=== PATIENT | male | born 1955 | race Caucasian/White ===

== ENCOUNTER 2016-05-14 11:24 | Outpatient (CLI) | payer BC ==
[~2016-05-14] VITALS: Ht 182.9 cm; Wt 106.8 kg
--- NOTE | ~2016-05-14 | HEMODYNAMI ---
PATIENT:ANASTACIO ROE MEDICAL RECORD: [id number] : 51 LOCATION:[facility] ADMISSION DATE: 05/14/16 Generatedon:05/14/201613:27 Patient name: ANASTACIO ROE Patient #: [id number] SSN: D OB: 1955 Date of study: 05/14/2016 Page: Of Hemodynamic Procedure Report Patient Data Patient Demographics Procedure consent was obtained First Name: ANASTACIO Gender: Male Last Name: BHUPINDER : 1955 Middle Initial: AMY Age: 61 year(s) Patient #: [id number] Race: Unknown Additional ID: [id number] Contact details Address: [address] [place] [address] State: [place] City: [place] Zip code: [address] Past Medical History Allergies Allergen Reaction Date Comments Reported Other allergy 05/14/2016 TYREE Black Admission Admission Data Admission Date: 05/14/2016 Admission Time: 11:24 Arrival Date: 05/14/2016 Arrival Time: 0:00 Admit Source: Other Height (in.): 72 BSA: 2.28 (m2) Height (cm.): 182.88 BMI: 31.74 (kg/m2) Weight (lbs.): 234 Weight (kg.): 106.14 Lab Results Lab Result Date: 05/14/2016 Lab Result Time: 0:00 Biochemistry Name Units Result Min Max BUN mg/dl 16 --(---*)-- 7 18 Creatinine mg/dl 0.6 --(*---)-- 0.6 1.3 CBC Name Units Result Min Max Hemoglobin g/dl 17.8 --(----)*- 13.5 17.5 Procedure Procedure Types Cath Procedure Diagnostic Procedure Cardioversion Procedure Description Procedure Date Procedure Date: 05/14/2016 Procedure Start Time: 13:15 Procedure End Time: 13:21 Procedure Staff Name Function Tr Jesus MD Performing Physician Jeanette Orona RT Scrub Megan Phipps RN Nurse Patricia Shane RT Monitor America Dhillon ADELFO Additional personnel Procedure Data Procedure Complications No complications Procedure Medications Medication Administration Route Dosage Oxygen NC 2 l/min Refer to Anesthesia Notes for Sedation Medications Hemodynamics Rest BSA: 2.28 (m2) HGB: 17.8 (g/dl) O2 Consumption: Estimated: 310.08 (ml/min) O2 Co nsumption indexed: Estimated:136 (ml/min/m) Pre Cath Intra NCS Post Cath Vital Signs Time Heart Resp SPO2 etCO2 [id number] Respiration NIBP (mmHg) Rhythm Obey n Sedation Rate (ipm) (%) (mmHg) (mmHg) (CO2) (ipm) Status Leve l (bpm) 13:04:37 105 18 97 34.1 4.4 17 140/80(117) A-Fib 0 ( 11) 10(A) , No pain 13:09:03 98 17 98 23.7 2.9 10 153/97(132) A-Fib 0 ( 11) 10(A) , No pain 13:13:34 87 16 96 28.9 4.4 16 145/115(123) A-Fib 0 ( 11) 10(A) , No pain 13:18:02 117 15 98 0 0 114/87(112) NSR 0 ( 11) 8(A) , No pain 13:22:20 79 14 97 0 0 124/83(98) NSR 0 ( 11) 9(A) , No pain 13:25:10 82 17 98 32.6 0 13 123/86(101) NSR 0 ( 11) 10(A) , No pain Medications Time Medication Route Dose Verified Delivered Reason Notes Effectiven ess by by 13:02:42 Oxygen NC 2 Tr Guzman used for l/min St. Anastacio Phipps RN procedure MD 13:02:47 Refer to Tr Guzman Anesthesia St. Anastacio Phipps RN Notes for Sedation Medications Procedure Log Time Note 12:48:09 Admit Source: Other 12:48:28 Patient Height : 72 cm 12:48:35 Patient Weight : 234 kg 12:48:36 Arrival Date: 05/14/2016 12:00:00 AM 12:48:47 Diagnostic Cath Status : Elective 12:50:26 Megan Phipps RN sent for patient. Start room use. 12:50:28 Time tracking: Regular hours 12:50:34 Plan of Care:Hemodynamics will remain stable., Cardiac rhythm will remain stable., Comfort level will be maintained., Respiratory function will remain adequate., Patient/ family verbilizes understanding of procedure., Procedure tolerated without complication., Recovers from procedure without complications.. 12:51:33 Patient received from Pre/Post Procedure Room to CCL 1 Alert and oriented. Tansferred to table in Supine position. 12:51:52 H&P Date Dictated: 05/07/2016 Within 30 days and on chart., H&P Addendum completed by physician on day of procedure. (MUST COMPLETE FOR ALL OUTPATIENTS). 12:54:10 Warm blankets applied, and fernando hugger turned on for patient comfort. 12:54:12 Correct patient and procedure confirmed by team. 12:54:14 Signed procedure consent form obtained from patient. 12:54:16 ECG and BP/O2 sat monitors applied to patient. 12:54:38 Pre-procedure instructions explained to patient. 12:54:40 Family in waiting room. 12:54:42 Patient NPO since Midnight. 12:55:12 Patient allergic to Other allergyCodeine, PCN 12:57:39 Is the patient allergic to Iodine/contrast media? No. 12:57:57 Is patient on blood thinner?Yes 12:58:03 ACC The patient was administered the following blood thiners within the last 24 hours: Xarelto 12:58:09 Snore? Yes 12:58:14 Sleep apnea? No 12:58:29 Patient diabetic? Yes. 12:58:51 Dentures? No ? 12:59:06 IV patent on arrival in left forearm with 0.9% NaCl at [facility]. 13:02:42 Oxygen 2 l/min NC was administered by Megan Phipps RN; used for procedure; 13:02:47 Refer to Anesthesia Notes for Sedation Medications was administered by Megan Phipps RN; ; 13:03:57 Lab results completed and on chart. 13:04:23 Lab Result : BUN 16 mg/dl 13:04:23 Lab Result : Creatinine 0.6 mg/dl 13:04:23 Lab Result : Hemoglobin 17.8 g/dl 13:04:34 Alarms reviewed by Elena Paul 13:04:36 Physician paged 13:04:37 Physician arrived 13:09:59 --------ALL STOP TIME OUT------ 13:10:01 Final Timeout: patient, procedure, and site verified with staff and physician. All members of the team are in agreement. 13:10:10 Sedation plan: TIVA Propofol 13:10:21 Quick combo pads placed on patients chest and back. 13:10:30 Quick Combo opened to sterile field. 13:15:26 Procedure started. 13:15:26 Full Disclosure recording started 13:17:19 America Dhillon present and monitoring patient for TIVA. 13:19:09 Defibrillator synced and charged to 200 Joules. 13:19:19 Shock delivered. 13:19:26 Patient cardioverted to sinus rhythm . 13:19:47 Procedure ended.(Physican Out) 13:20:17 Post procedure rhythm: sinus rhythm 13:20:21 Post procedure instruction explained to patient.Patient verbalizes understanding. 13:20:29 Procedure and supply charges have been captured, reviewed, submitted and are correct. 13:20:48 Procedure Complication : No complications 13:21:05 See physician's report for complete and final results. 13:21:07 Report given to Pre/Post Procedure Room. 13:21:12 Patient transfered to Pre/Post Procedure Room with Stretcher. 13:21:16 Procedure ended. 13:21:16 Full Disclosure recording stopped 13:21:23 End room use (Document Last) 13:23:46 Vital chart was stopped Device Usage Item Manufacture Quantity Catalog Hospital Part Current Minimal Lot# / Name Number Charge Number Stock Sonali Koenig ga# Code [employer] 1 [id number] Combo Signature Audit [place] Stage Time Signature Unsigned Intra-Procedure 05/14/2016 Patricia Shane 1:27:02 PM RT(R) Signatures Monitor : Patricia Shane Signature : RT Date : Time : [facility] [address] [place], [place] [id number]
[2016-05-14] MEDS ORDERED: BETAPACE 80 MG80 MG PO (11:49)
[2016-05-14] MEDS ORDERED: NORVASC10 MG PO (11:50)
[2016-05-14] MEDS ORDERED: GLUCOTROL 5 MG T5 MG PO (11:50)
[2016-05-14] MEDS ORDERED: LIPITOR20 MG PO (11:51)
[2016-05-14] MEDS ORDERED: XARELTO20 MG PO (11:51)
[2016-05-14 11:52] VITALS: BP 132/100; Ht 182.9 cm; Wt 106.8 kg
[2016-05-14 12:05] LABS: BASOPHILS 0.2 % (0.0-2.0); EOSINOPHILS 0.9 % (0-7); HEMATOCRIT 51.2 % (42.0-54.0); HEMOGLOBIN 17.8 g/dL (13.5-17.5); IMMATURE GRANULOCYTES 0.3 % (0-5); LYMPHOCYTES 21.7 % (15-50); MCH 33.6 pg (26.0-34.0); MCHC 34.8 g/dL (31.0-37.0); MCV 96.8 fL (80.0-100.0); MEAN PLATELET VOLUME 9.9 fL (7.4-10.4); MONOCYTES 12.5 % (2-11); NEUTROPHILS 64.4 % (40-80); PLATELET COUNT 144 10x3/uL (130-400); RBC 5.29 10x6/uL (4.20-6.10); RDW 12.4 % (11.5-14.5); WBC 9.7 10x3/uL (4.8-10.8)
[2016-05-14 12:20] LABS: CALC OSMOLALITY 280 mosm/kg (275-300); CALCIUM 9.3 mg/dL (8.5-10.1); CARBON DIOXIDE 27.2 mmol/L (21.0-32.0); CHLORIDE - SERUM 103 mmol/L (98-107); CREATININE - SERUM 0.6 mg/dL (0.6-1.3); GLUCOSE 124 mg/dL (74-106); SODIUM 140 mmol/L (136-145); UREA NITROGEN 16 mg/dL (7-18); eGFR NON AFRICAN AMERICAN > 90 mL/min (90-120)
[2016-05-14 12:23] LABS: INR 1.47 (0.85-1.17); PROTIME 17.8 SECONDS (11.6-15.0)
--- NOTE | 2016-05-14 14:55 | NUR ---
1345-NSR, SANDWICH TRAY GIVEN
--- NOTE | 2016-05-14 15:01 | NUR ---
1415-NO EULOGIO WORTHY
--- NOTE | 2016-05-15 08:42 | OP ---
PATIENT NAME: ANASTACIO ROE MEDICAL RECORD: [id number] :51 LOCATION:[facility] ADMISSION DATE: SURGEON: MARY CAVAZOS MD DATE OF OPERATION: 05/14/2016 PROCEDURE: General sedation via anesthesia with TIVA. DESCRIPTION OF PROCEDURE: Single shock successful in restoring atrial fibrillation at 200 joules single synchronized shock successful in restoring atrial fibrillation to normal sinus rhythm. IMPRESSION: Successful cardioversion. COMPLICATIONS: None. DISPOSITION: To the floor, stable. TRANSINT:[id number] Voice Confirmation ID: [id number] DOCUMENT ID: [id number] MARY CAVAZOS MD at 0842 CC: [id number] DICTATION DATE: 05/14/16 1322 INTENSIVE CARE ANAESTHETIST: 05/14/16 1433 DEP CLI 05/14/16 [id number] [place] [address]
== END 2016-05-14 14:30 | disposition home or self-care (01) ==
LOC: D.CATH 11:24
PROVIDERS: Internal Medicine Interventional Cardiology
DX: I48.91 Unspecified atrial fibrillation (principal)